=== PATIENT | female | born 1955 | race Caucasian/White ===

== ENCOUNTER 2016-05-28 01:02 | Inpatient (IN) | payer OTHER ==
[2016-05-28] VITALS (12 sets, daily range): BP systolic 105–121; BP diastolic 59–70; PULSE 88–97; RESP 16–18; TEMP 96.3–98.8; O2SAT 91–100
[~2016-05-28] VITALS: Ht 165.1 cm; Wt 82.3 kg
[2016-05-28] MEDS ORDERED: BUTA1CAP PO (01:19)
[2016-05-28] MEDS ORDERED: DEPA250T2 PO (01:19)
[2016-05-28] MEDS ORDERED: SYNT88TA PO (01:19)
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
[2016-05-28] MEDS ORDERED: HYDROmorphone HCL PF 1 MG/ML VIAL IV PUSH ONE (02:30)
[2016-05-28] MEDS ORDERED: ONDANSETRON HCL 4 MG/2 ML VIAL IV PUSH ONE (02:30)
[2016-05-28] MEDS ORDERED: ONDANSETRON HCL 4 MG/2 ML VIAL IV PRN (02:30)
[2016-05-28] MEDS: SODIUM CHLORIDE 0.9% FLUSH 5 ML FLUSH IVF SCH ×2 (02:37→20:29)
[2016-05-28] MEDS: ACETAMINOPHEN 325 MG TAB PO PRN ×2 (05:11→11:32)
[2016-05-28] MEDS: HYDROmorphone HCL PF 1 MG/ML VIAL IV PUSH PRN ×5 (05:12→21:46)
[2016-05-28] MEDS ORDERED: SODIUM CHLOR 0.9% 1000 ML INJ 1,000 ML IV SCH (06:52)
[2016-05-28] MEDS ORDERED: DIVALPROEX SODIUM DELAYED RELEASE 250 MG TAB PO SCH ×2 (07:00→09:00)
[2016-05-28] MEDS ORDERED: ENALAPRILAT 1.25 MG/ML VIAL IV PRN (07:00)
[2016-05-28] MEDS ORDERED: SODIUM CHLORIDE 0.9% FLUSH 5 ML FLUSH IVF PRN (07:00)
[2016-05-28] MEDS: DOCUSATE SODIUM 100 MG CAP PO SCH ×2 (08:24→20:27)
[2016-05-28] MEDS: LEVOTHYROXINE SODIUM 88 MCG TAB PO SCH (08:24)
[2016-05-28] MEDS: FAMOTIDINE 20 MG TAB PO SCH ×2 (08:25→20:27)
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
[2016-05-28] MEDS ORDERED: FLUoxetine HCL 20 MG CAP PO ONE (10:45)
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
[2016-05-28] MEDS: CARISOPRODOL 350 MG TAB PO SCH ×2 (14:23→21:46)
[2016-05-28] MEDS: ENOXAPARIN SODIUM 40 MG/0.4 ML SYRINGE SQ SCH (14:23)
[2016-05-28] MEDS: oxyCODONE/ACETAMINOPHEN 5 MG/325 MG TAB PO PRN ×2 (16:22→20:28)
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
[2016-05-28 17:21] LABS: AUTOMATED NEUTROPHIL # 4.8 TH/MM3 (1.8-7.7); BASOPHIL % 0.3 % (0.0-2.0); EOSINOPHIL # 0.7 TH/MM3 (0-0.4); EOSINOPHIL % 9.7 % (0.0-4.0); HEMATOCRIT 32.5 % (35.0-46.0); HEMO FLAGS DIFF FINAL; LYMPH % 12.2 % (9.0-44.0); LYMPHOCYTE # 0.9 TH/MM3 (1.0-4.8); MEAN CELL VOLUME 83.6 FL (80.0-100.0); MEAN CORPUSCULAR HEMOGLOBIN 28.1 PG (27.0-34.0); MEAN CORPUSCULAR HGB CONC 33.6 % (32.0-36.0); MONO % 10.2 % (0.0-8.0); NEUT % 67.6 % (16.0-70.0); PLATELET COUNT 163 TH/MM3 (150-450); RED BLOOD COUNT 3.89 MIL/MM3 (4.00-5.30); RED CELL DISTRIBUTION WIDTH 13.9 % (11.6-17.2)
[2016-05-28 17:47] LABS: BICARBONATE 33.3 MEQ/L (21.0-32.0); POTASSIUM 3.5 MEQ/L (3.5-5.1)
--- NOTE | 2016-05-28 17:49 | PD.ORT.PN ---
Subjective Subjective Remarks L2 Fracture Right distal clavicle fracture Bilateral ankle/foot injuries Objective Vitals Vital Signs Date Time Temp Pulse Resp B/P Pulse Ox O2 Delivery O2 Flow Rate FiO2 05/28/16 16:16 96 Nasal Cannula 2.00 05/28/16 16:00 97.8 95 18 115/63 98 05/28/16 12:00 97.5 89 18 109/65 91 05/28/16 08:00 97.1 88 18 112/66 91 05/28/16 07:54 94 Nasal Cannula 2.00 05/28/16 07:48 Nasal Cannula 2.00 05/28/16 05:10 96.3 91 16 121/67 99 05/28/16 04:46 91 18 105/59 96 05/28/16 03:50 92 18 110/64 100 Nasal Cannula 2 05/28/16 03:05 94 Nasal Cannula 2.00 05/28/16 02:38 92 16 119/62 93 Nasal Cannula 2 05/28/16 01:06 98.1 97 18 119/63 I/O 05/27/16 05/27/16 05/27/16 05/28/16 05/28/16 05/28/16 07:00 15:00 23:00 07:00 15:00 23:00 Intake Total 360 ml 1340 ml Output Total 850 ml 400 ml Balance -490 ml 940 ml Intake Oral 360 ml 1340 ml Output Urine Total 850 ml 400 ml # Bowel Movements 0 0 Result Diagram: 05/28/16 1646 Imaging Last 24 hours Impressions Lumbar Spine MRI 05/28/16 0000 Signed Impressions: Service Date/Time: Saturday, May 28, 2016 13:03 - CONCLUSION: 1. Acute L2 compression fracture with moderate wedging and bone marrow edema, mild perivertebral edema. No associated canal or foraminal narrowing. 2. Degenerative disc disease. Gume Walters MD Cervical Spine MRI 05/28/16 0000 Signed Impressions: Service Date/Time: Saturday, May 28, 2016 13:03 - CONCLUSION: There is motion artifact which does somewhat limit the study however it is otherwise unremarkable examination. Gume Walters MD Ankle MRI 05/28/16 0000 Signed Impressions: Service Date/Time: Saturday, May 28, 2016 13:37 - CONCLUSION: 1. Nondisplaced fractures of the talus, calcaneus and cuboid as above. Also apparent fractures proximally of the second through fifth metatarsals, what can be seen appears nondisplaced but not fully evaluated on this ankle MRI. 2. Acute rupture of the ATF. 3. Longitudinal splitting of peroneus brevis, presumably nonacute. Girish Mir MD Objective Remarks Full consult dictated Assessment & Plan Problem List: (1) Fracture of lumbar spine without spinal cord lesion (2) Fracture of left clavicle (3) Fracture of left talus (4) Right calcaneal fracture Assessment and Plan Discussed with patient before MRIs were completed Recommend Neurosurgery consult for significant deformity associated with L2 compression fracture with retropulsion Discussed with Dr. Barnes regarding multiple feet fractures Conservative care for distal clavicle fracture Wilmer Abraham MD May 28, 2016 17:49
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
[2016-05-28] MEDS: AMITRIPTYLINE HCL 50 MG TAB PO SCH (20:27)
[2016-05-28] MEDS: DIVALPROEX SODIUM DELAYED RELEASE 250 MG TAB PO SCH (20:28)
[2016-05-28] MEDS ORDERED: KETOROLAC TROMETHAMINE 60 MG/2 ML (IM) VIAL IM SCH (21:00)
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
[2016-05-29] VITALS (9 sets, daily range): BP systolic 116–159; BP diastolic 67–92; PULSE 82–91; RESP 16–18; TEMP 95.9–99.6; O2SAT 92–99
[2016-05-29] MEDS: HYDROmorphone HCL PF 1 MG/ML VIAL IV PUSH PRN ×4 (01:58→13:28)
[2016-05-29] MEDS: CARISOPRODOL 350 MG TAB PO SCH ×3 (06:07→21:20)
[2016-05-29] MEDS ORDERED: oxyCODONE/ACETAMINOPHEN 10 MG/325 MG TAB PO PRN (07:00)
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
[2016-05-29] MEDS: oxyCODONE/ACETAMINOPHEN 10 MG/325 MG TAB PO PRN ×2 (07:26→10:36)
[2016-05-29] MEDS: SODIUM CHLORIDE 0.9% FLUSH 5 ML FLUSH IVF SCH (07:57)
[2016-05-29] MEDS: LEVOTHYROXINE SODIUM 88 MCG TAB PO SCH (07:57)
[2016-05-29] MEDS: DOCUSATE SODIUM 100 MG CAP PO SCH ×2 (07:57→21:19)
[2016-05-29] MEDS: FAMOTIDINE 20 MG TAB PO SCH ×2 (07:57→21:20)
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
[2016-05-29] MEDS: SODIUM CHLORIDE 0.9% FLUSH 5 ML FLUSH IVF PRN ×2 (09:31→13:28)
[2016-05-29] MEDS ORDERED: SIMETHICONE 125 MG CHEWABLE TAB PO PRN (11:30)
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
[2016-05-29] MEDS: POLYETHYLENE GLYCOL 17 GM PKG PO SCH (12:37)
--- NOTE | 2016-05-29 12:39 | HHI.NSPN ---
History Chief Complaint: none Interval History She is not yet OOB pending orthopedic assessment of ankle fractures. The TLSO is at the bedside. Review of Systems General: Negative for: fever, chills, insomnia Cardiovascular: Negative for: chest pain, palpitations, orthopnea Gastrointestinal: Negative for: nausea, vomitting, diarrhea, constipation Exam Results Vital Signs Date Time Temp Pulse Resp B/P Pulse Ox O2 Delivery O2 Flow Rate FiO2 05/29/16 09:54 99 21 05/29/16 09:35 Nasal Cannula 2.00 05/29/16 07:27 95.9 85 16 136/67 Intake and Output 05/28/16 05/28/16 05/29/16 08:00 16:00 00:00 Intake Total 360 ml 1340 ml 720 ml Output Total 850 ml 400 ml 750 ml Balance -490 ml 940 ml -30 ml Physical Examination Alert and oriented x 3, speech fluent Moves caden hip flexors, quads, hams ant tib and gastroc with excellent strength. Bruising and edema in both feet Patella reflexes are intact bilaterally Lab, Micro, Other Results Last Impressions Foot X-Ray 05/29/16 0000 Signed Impressions: Service Date/Time: Sunday, May 29, 2016 08:15 - CONCLUSION: Fractures are noted as above. Gume Walters MD Clavicle X-Ray 05/29/16 0000 Signed Impressions: Service Date/Time: Sunday, May 29, 2016 08:19 - CONCLUSION: No acute disease. Gume Walters MD Lumbar Spine MRI 05/28/16 0000 Signed Impressions: Service Date/Time: Saturday, May 28, 2016 13:03 - CONCLUSION: 1. Acute L2 compression fracture with moderate wedging and bone marrow edema, mild perivertebral edema. No associated canal or foraminal narrowing. 2. Degenerative disc disease. Gume Walters MD Cervical Spine MRI 05/28/16 0000 Signed Impressions: Service Date/Time: Saturday, May 28, 2016 13:03 - CONCLUSION: There is motion artifact which does somewhat limit the study however it is otherwise unremarkable examination. Gume Walters MD Ankle MRI 05/28/16 0000 Signed Impressions: Service Date/Time: Saturday, May 28, 2016 13:54 - CONCLUSION: Comminuted , minimally to mildly displaced intra-articular fracture of the calcaneus as above. Girish Mir MD Laboratory Tests Test 05/28/16 16:46 White Blood Count 7.0 TH/MM3 Red Blood Count 3.89 MIL/MM3 Hemoglobin 10.9 GM/DL Hematocrit 32.5 % Mean Corpuscular Volume 83.6 FL Mean Corpuscular Hemoglobin 28.1 PG Mean Corpuscular Hemoglobin 33.6 % Concent Red Cell Distribution Width 13.9 % Platelet Count 163 TH/MM3 Mean Platelet Volume 9.1 FL Neutrophils (%) (Auto) 67.6 % Lymphocytes (%) (Auto) 12.2 % Monocytes (%) (Auto) 10.2 % Eosinophils (%) (Auto) 9.7 % Basophils (%) (Auto) 0.3 % Neutrophils # (Auto) 4.8 TH/MM3 Lymphocytes # (Auto) 0.9 TH/MM3 Monocytes # (Auto) 0.7 TH/MM3 Eosinophils # (Auto) 0.7 TH/MM3 Basophils # (Auto) 0.0 TH/MM3 CBC Comment DIFF FINAL Differential Comment Sodium Level 137 MEQ/L Potassium Level 3.5 MEQ/L Chloride Level 98 MEQ/L Carbon Dioxide Level 33.3 MEQ/L Anion Gap 6 MEQ/L Blood Urea Nitrogen 11 MG/DL Creatinine 0.54 MG/DL Estimat Glomerular Filtration 116 ML/MIN Rate Random Glucose 90 MG/DL Calcium Level 8.0 MG/DL Medical Decision Making Impression and Plan L2 stable compression fracture, stable neurologically as well. Plan rehab, OOB with TLSO when able from co -morbidities. DVT/PUD prophylaxis, Vitamin D level, rehab consults Total Minutes: 10 Kamar Her May 29, 2016 12:39
[2016-05-29] MEDS: ENOXAPARIN SODIUM 40 MG/0.4 ML SYRINGE SQ SCH (13:28)
[2016-05-29] MEDS ORDERED: HYDROmorphone HCL 2 MG TAB PO PRN (14:00)
[2016-05-29] MEDS: HYDROmorphone HCL 4 MG TAB PO PRN ×3 (15:41→21:23)
[2016-05-29] MEDS: BACITRACIN TOP OINT 15 GM TUBE TOP SCH ×2 (15:41→21:21)
[2016-05-29] MEDS ORDERED: ENOXAPARIN SODIUM 30 MG/0.3 ML SYRINGE SQ SCH (16:00)
[2016-05-29] MEDS: DIVALPROEX SODIUM DELAYED RELEASE 250 MG TAB PO SCH (21:19)
[2016-05-29] MEDS: AMITRIPTYLINE HCL 50 MG TAB PO SCH (21:20)
[2016-05-29] MEDS: ALPRAZolam 0.5 MG TAB PO PRN (21:23)
[2016-05-29] MEDS: ENOXAPARIN SODIUM 30 MG/0.3 ML SYRINGE SQ SCH (23:05)
[2016-05-30] VITALS: BP 150/87; PULSE 92; RESP 18; TEMP 98.7; O2SAT 93
[2016-05-30] MEDS: HYDROmorphone HCL 4 MG TAB PO PRN ×8 (00:42→21:23)
[2016-05-30 04:00] VITALS: BP 153/87; PULSE 92; RESP 18; TEMP 99.2; O2SAT 94
[2016-05-30] MEDS: MAGNESIUM HYDROXIDE SUSP 30 ML CUP PO PRN ×2 (05:38→14:39)
[2016-05-30] MEDS: CARISOPRODOL 350 MG TAB PO SCH ×3 (05:38→21:17)
--- NOTE | 2016-05-30 07:26 | PD.ORT.PN ---
Subjective Subjective Remarks Kristen is awake and alert. Pain is improving. She still complains of left foot pain, mild right foot pain, mild left shoulder pain Objective Vitals Vital Signs Date Time Temp Pulse Resp B/P Pulse Ox O2 Delivery O2 Flow Rate FiO2 05/30/16 04:00 99.2 92 18 153/87 94 05/30/16 00:00 98.7 92 18 150/87 93 05/29/16 20:26 87 05/29/16 20:00 99.0 82 18 143/86 92 05/29/16 17:25 99.6 90 18 155/92 94 05/29/16 12:00 95.9 89 18 159/76 95 05/29/16 09:54 99 21 05/29/16 09:35 Nasal Cannula 2.00 05/29/16 07:27 95.9 85 16 136/67 93 I/O 05/29/16 05/29/16 05/29/16 05/30/16 05/30/16 05/30/16 07:00 15:00 23:00 07:00 15:00 23:00 Intake Total 480 ml 1216 ml 360 ml 360 ml Output Total 400 ml 1300 ml 500 ml 525 ml Balance 80 ml -84 ml -140 ml -165 ml Intake Oral 480 ml 720 ml 360 ml 360 ml IV Total 496 ml Output Urine Total 400 ml 1300 ml 500 ml 525 ml # Bowel Movements 0 0 0 Result Diagram: 05/28/16 1646 05/28/16 1646 Imaging Last 24 hours Impressions Lumbar Spine MRI 05/28/16 0000 Signed Impressions: Service Date/Time: Saturday, May 28, 2016 13:03 - CONCLUSION: 1. Acute L2 compression fracture with moderate wedging and bone marrow edema, mild perivertebral edema. No associated canal or foraminal narrowing. 2. Degenerative disc disease. Gume Walters MD Cervical Spine MRI 05/28/16 0000 Signed Impressions: Service Date/Time: Saturday, May 28, 2016 13:03 - CONCLUSION: There is motion artifact which does somewhat limit the study however it is otherwise unremarkable examination. Gume Walters MD Ankle MRI 05/28/16 0000 Signed Impressions: Service Date/Time: Saturday, May 28, 2016 13:37 - CONCLUSION: 1. Nondisplaced fractures of the talus, calcaneus and cuboid as above. Also apparent fractures proximally of the second through fifth metatarsals, what can be seen appears nondisplaced but not fully evaluated on this ankle MRI. 2. Acute rupture of the ATF. 3. Longitudinal splitting of peroneus brevis, presumably nonacute. Girish Mir MD Objective Remarks Right upper extremity: Full range of motion neurovascularly intact Left upper extremity: Pain to palpation over clavicle. Minimal pain to palpation of her proximal humerus elbow wrist and fingers. Mild pain with shoulder motion. Distally neurovascularly intact Bilateral lower extremities no pain with hip or knee range of motion. Right linter tender to palpation over calcaneus. Left foot pain over calcaneus and distal metatarsals. Intact sensation bilateral lower extremities. Intact distal pulses bilaterally. Assessment & Plan Problem List: (1) Fracture of lumbar spine without spinal cord lesion (2) Fracture of left clavicle (3) Fracture of left talus (4) Right calcaneal fracture Assessment and Plan Left shoulder AC sprain-- nonoperative treatment Weight-bear as tolerated left upper extremity Right minimally displaced calcaneus fracture Fracture boot and partial weightbearing for transfers only Left calcaneus, talus, cuboid and fractures from 2 through 5 metatarsals Fracture boot and partial weightbearing for transfers only Discharge planning, SNF versus rehab Gus Barnes MD May 30, 2016 07:26
[2016-05-30 07:36] LABS: HEMATOCRIT 35.3 % (35.0-46.0); MEAN CELL VOLUME 82.4 FL (80.0-100.0); MEAN CORPUSCULAR HEMOGLOBIN 28.8 PG (27.0-34.0); PLATELET COUNT 199 TH/MM3 (150-450); RED BLOOD COUNT 4.28 MIL/MM3 (4.00-5.30); REVIEW FLAG FINAL; WHITE BLOOD COUNT 8.8 TH/MM3 (4.0-11.0)
[2016-05-30] MEDS ORDERED: WALKER WHEELS/F1 MIS (07:53)
[2016-05-30] MEDS ORDERED: MISC-163 (07:53)
[2016-05-30] MEDS ORDERED: WHEEMIS3 (07:53)
[2016-05-30 08:00] VITALS: BP 138/83; PULSE 103; RESP 20; TEMP 95.9; O2SAT 92
[2016-05-30 08:07] LABS: MAGNESIUM 1.8 MG/DL (1.5-2.5); POTASSIUM 3.7 MEQ/L (3.5-5.1)
[2016-05-30] MEDS: POLYETHYLENE GLYCOL 17 GM PKG PO SCH (08:58)
[2016-05-30] MEDS: FAMOTIDINE 20 MG TAB PO SCH ×2 (08:58→21:17)
[2016-05-30] MEDS: DOCUSATE SODIUM 100 MG CAP PO SCH ×2 (08:58→21:18)
[2016-05-30] MEDS: LEVOTHYROXINE SODIUM 88 MCG TAB PO SCH (08:58)
[2016-05-30] MEDS: BACITRACIN TOP OINT 15 GM TUBE TOP SCH ×2 (08:59→21:18)
[2016-05-30] MEDS: SODIUM CHLORIDE 0.9% FLUSH 5 ML FLUSH IVF SCH ×2 (08:59→21:17)
[2016-05-30] MEDS: ENOXAPARIN SODIUM 30 MG/0.3 ML SYRINGE SQ SCH ×2 (11:44→21:20)
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
[2016-05-30 12:00] VITALS: BP 114/72; PULSE 117; RESP 18; TEMP 98.2; O2SAT 92
[2016-05-30 16:00] VITALS: BP 126/82; PULSE 103; RESP 20; TEMP 100.2; O2SAT 93
[2016-05-30 20:00] VITALS: BP 116/72; PULSE 98; RESP 18; TEMP 98.8; O2SAT 92
[2016-05-30] MEDS: AMITRIPTYLINE HCL 50 MG TAB PO SCH (21:17)
[2016-05-30] MEDS: DIVALPROEX SODIUM DELAYED RELEASE 250 MG TAB PO SCH (21:18)
[2016-05-31 00:34] VITALS: BP 136/75; PULSE 102; RESP 18; TEMP 98.7; O2SAT 90
[2016-05-31] MEDS: HYDROmorphone HCL 4 MG TAB PO PRN ×7 (00:44→22:36)
[2016-05-31] MEDS ORDERED: BISACODYL 10 MG SUPP RECTAL PRN (03:15)
[2016-05-31] MEDS: CARISOPRODOL 350 MG TAB PO SCH ×3 (06:40→22:36)
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
[2016-05-31 08:00] VITALS: BP 130/72; PULSE 109; RESP 16; TEMP 99; O2SAT 92
[2016-05-31] MEDS: POLYETHYLENE GLYCOL 17 GM PKG PO SCH (09:00)
[2016-05-31] MEDS: FAMOTIDINE 20 MG TAB PO SCH ×2 (09:07→21:12)
[2016-05-31] MEDS: BACITRACIN TOP OINT 15 GM TUBE TOP SCH ×2 (09:07→21:11)
[2016-05-31] MEDS: BISACODYL EC 5 MG TABEC PO SCH ×2 (09:07→21:12)
[2016-05-31] MEDS: DOCUSATE SODIUM 100 MG CAP PO SCH ×2 (09:07→21:12)
[2016-05-31] MEDS: LEVOTHYROXINE SODIUM 88 MCG TAB PO SCH (09:07)
[2016-05-31] MEDS: SODIUM CHLORIDE 0.9% FLUSH 5 ML FLUSH IVF SCH ×2 (09:13→21:12)
[2016-05-31] MEDS: ALPRAZolam 0.5 MG TAB PO PRN ×2 (09:41→22:36)
[2016-05-31] MEDS ORDERED: MAGNESIUM CITRATE SOLN 300 ML BTL PO ONE (11:30)
[2016-05-31 12:00] VITALS: BP 109/66; PULSE 118; RESP 16; TEMP 97.5; O2SAT 96
[2016-05-31] MEDS: ENOXAPARIN SODIUM 30 MG/0.3 ML SYRINGE SQ SCH ×2 (12:38→22:36)
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
[2016-05-31 16:00] VITALS: BP 125/78; PULSE 115; RESP 17; TEMP 96.9; O2SAT 94
[2016-05-31] MEDS: SODIUM CHLORIDE 0.9% FLUSH 5 ML FLUSH IVF PRN (16:04)
--- NOTE | 2016-05-31 16:21 | RADRPT ---
EXAM DATE/TIME: 05/31/2016 14:47 [place] COMPARISON: No previous studies available for comparison. INDICATIONS : Evaluate for Ileus, constipation and nausea. MEDICAL HISTORY : A-fib. SURGICAL HISTORY : Hysterectomy. ENCOUNTER: Initial ACUITY: 1 week PAIN SCORE: 6/10 LOCATION: Bilateral lower quadrant FINDINGS: There is gaseous distention of bowel, especially large bowel diffusely. Moderate constipation noted i n the rectosigmoid. No free air. No acute bony abnormalities. CONCLUSION: 1. Moderate to severe rectosigmoid constipation with diffuse gaseous distention of large bowel. No fr ee air. Basilar air space disease in the lungs. Cristobal Nath MD on May 31, 2016 at 16:16 Board Certified Radiologist. This report was verified electronically.
[2016-05-31] MEDS ORDERED: ENOX30P SQ (17:12)
[2016-05-31] MEDS ORDERED: Amitriptyline PO (17:12)
[2016-05-31] MEDS ORDERED: DIVA250T PO (17:12)
[2016-05-31] MEDS ORDERED: BISA10R RECTAL (17:12)
[2016-05-31] MEDS ORDERED: FLEE5TAB PO (17:12)
[2016-05-31] MEDS ORDERED: ACET325T PO (17:12)
[2016-05-31] MEDS ORDERED: DILA4TAB2 PO (17:12)
[2016-05-31] MEDS ORDERED: SIME1CHW11 PO (17:12)
[2016-05-31] MEDS ORDERED: ALPR.5 PO (17:12)
[2016-05-31] MEDS ORDERED: POLY17S PO (17:12)
[2016-05-31] MEDS ORDERED: SYNT88TA PO (17:12)
[2016-05-31] MEDS ORDERED: FAMO20TA2 PO (17:12)
[2016-05-31] MEDS ORDERED: MILKSUS PO (17:12)
[2016-05-31] MEDS ORDERED: DILA2TAB2 PO (17:12)
[2016-05-31] MEDS ORDERED: DOCU1CAP39 PO (17:12)
[2016-05-31 20:10] VITALS: BP 127/74; PULSE 121; RESP 16; TEMP 99.3; O2SAT 92
[2016-05-31] MEDS: AMITRIPTYLINE HCL 50 MG TAB PO SCH (21:12)
[2016-05-31] MEDS: DIVALPROEX SODIUM DELAYED RELEASE 250 MG TAB PO SCH (21:12)
[2016-05-31 21:30] VITALS: PULSE 121
[2016-06-01 00:17] VITALS: BP 115/73; PULSE 109; RESP 15; TEMP 98.2; O2SAT 94
[2016-06-01] MEDS: HYDROmorphone HCL 4 MG TAB PO PRN ×3 (02:18→09:52)
[2016-06-01] MEDS: MAGNESIUM HYDROXIDE SUSP 30 ML CUP PO PRN (04:00)
[2016-06-01 04:05] VITALS: BP 127/83; PULSE 111; RESP 16; TEMP 98.8; O2SAT 93
[2016-06-01] MEDS: CARISOPRODOL 350 MG TAB PO SCH (05:34)
--- NOTE | 2016-06-01 06:54 | PD.ORT.PN ---
Subjective Subjective Remarks s/p left foot fractures s/p right calc fx doing well. out of bed and in chair. resting comfortably Objective Vitals Vital Signs Date Time Temp Pulse Resp B/P Pulse Ox O2 Delivery O2 Flow Rate FiO2 06/01/16 04:05 98.8 111 16 127/83 93 06/01/16 00:17 98.2 109 15 115/73 94 05/31/16 21:30 121 05/31/16 20:10 99.3 121 16 127/74 92 05/31/16 19:34 96 Room Air 05/31/16 16:00 96.9 115 17 125/78 94 05/31/16 14:50 16 05/31/16 12:00 97.5 118 16 109/66 96 05/31/16 08:00 Room Air 05/31/16 08:00 99.0 109 16 130/72 92 05/31/16 07:40 18 I/O 05/31/16 05/31/16 05/31/16 06/01/16 06/01/16 06/01/16 06:59 14:59 22:59 06:59 14:59 22:59 Intake Total 240 ml 680 ml 180 ml Output Total 450 ml 400 ml 650 ml Balance -210 ml 280 ml -470 ml Intake Oral 240 ml 680 ml 180 ml Output Urine Total 450 ml 400 ml 650 ml # Bowel Movements 0 0 0 Result Diagram: 05/30/16 0651 05/30/16 0651 Imaging Last 24 hours Impressions Lumbar Spine MRI 05/28/16 0000 Signed Impressions: Service Date/Time: Saturday, May 28, 2016 13:03 - CONCLUSION: 1. Acute L2 compression fracture with moderate wedging and bone marrow edema, mild perivertebral edema. No associated canal or foraminal narrowing. 2. Degenerative disc disease. Gume Walters MD Cervical Spine MRI 05/28/16 0000 Signed Impressions: Service Date/Time: Saturday, May 28, 2016 13:03 - CONCLUSION: There is motion artifact which does somewhat limit the study however it is otherwise unremarkable examination. Gume Walters MD Ankle MRI 05/28/16 0000 Signed Impressions: Service Date/Time: Saturday, May 28, 2016 13:37 - CONCLUSION: 1. Nondisplaced fractures of the talus, calcaneus and cuboid as above. Also apparent fractures proximally of the second through fifth metatarsals, what can be seen appears nondisplaced but not fully evaluated on this ankle MRI. 2. Acute rupture of the ATF. 3. Longitudinal splitting of peroneus brevis, presumably nonacute. Girish Mir MD Objective Remarks RLE: +fracture boot LLE: +short leg splint Assessment & Plan Problem List: (1) Fracture of lumbar spine without spinal cord lesion (2) Fracture of left clavicle (3) Fracture of left talus (4) Right calcaneal fracture Assessment and Plan 1) Left shoulder AC sprain-- nonoperative treatment Weight-bear as tolerated left upper extremity 2) Right minimally displaced calcaneus fracture Fracture boot and partial weightbearing for transfers only 3) Left calcaneus, talus, cuboid and fractures from 2 through 5 metatarsals Renetta splint and partial weightbearing for transfers only Discharge planning, SNF versus rehab Follow-up with Dr. Jackson or [place] in 2 weeks Juan Freeman Jun 01, 2016 06:53
[2016-06-01] MEDS: LEVOTHYROXINE SODIUM 88 MCG TAB PO SCH (07:44)
[2016-06-01] MEDS: FAMOTIDINE 20 MG TAB PO SCH (07:44)
[2016-06-01] MEDS: BISACODYL EC 5 MG TABEC PO SCH (07:45)
[2016-06-01] MEDS: DOCUSATE SODIUM 100 MG CAP PO SCH (07:45)
[2016-06-01] MEDS: POLYETHYLENE GLYCOL 17 GM PKG PO SCH (07:45)
[2016-06-01 08:00] VITALS: BP 112/82; PULSE 114; RESP 18; TEMP 97.2; O2SAT 92
[2016-06-01] MEDS: ALPRAZolam 0.5 MG TAB PO PRN (09:52)
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
[2016-06-07] MEDS ORDERED: WHEEMIS3 (14:38)
[2016-06-07] MEDS ORDERED: COMMODE 3-IN-11 MIS (14:38)
[2016-06-11] MEDS ORDERED: CYCL1TAB29 PO (08:16)
[2016-06-11] MEDS ORDERED: SYNT88TA PO (08:16)
[2016-06-11] MEDS ORDERED: DIVA250T PO (08:16)
[2016-06-11] MEDS ORDERED: FAMO20TA2 PO (08:16)
[2016-06-11] MEDS ORDERED: AMBI5TAB PO (08:16)
[2016-06-11] MEDS ORDERED: ENOX40P SQ (08:16)
[2016-06-11] MEDS ORDERED: FLUO20CA4 PO (08:16)
[2016-06-11] MEDS ORDERED: DOCU1CAP39 PO (08:16)
[2016-06-11] MEDS ORDERED: FENT25T TD (08:16)
[2016-06-11] MEDS ORDERED: Amitriptyline PO (08:16)
[2016-06-11] MEDS ORDERED: SIME1CHW11 PO (08:16)
[2016-06-11] MEDS ORDERED: ALPR.5 PO (08:16)
[2016-06-11] MEDS ORDERED: POLY17S PO (08:16)
[2016-06-11] MEDS ORDERED: OXYC-396 PO (08:16)
[2016-06-23] MEDS ORDERED: MILKSUS PO (11:30)
[2016-06-23] MEDS ORDERED: FENT12DI T-DERMAL (11:57)
[2016-07-29] MEDS ORDERED: OXYC-396 PO (11:52)
== END 2016-06-01 10:40 | DRG 552 ==
LOC: NEPC 01:02 → NEDA 02:22 → N06B 04:57
PROVIDERS: ADMIT Surgery; ATTEND Surgery
DX: S32.029A Unspecified fracture of second lumbar vertebra, initial encounter for closed fracture (principal); E03.9 Hypothyroidism, unspecified; S42.022A Displaced fracture of shaft of left clavicle, initial encounter for closed fracture; S92.102A Unspecified fracture of left talus, initial encounter for closed fracture; S92.001A Unspecified fracture of right calcaneus, initial encounter for closed fracture; S92.002A Unspecified fracture of left calcaneus, initial encounter for closed fracture; S13.4XXA Sprain of ligaments of cervical spine, initial encounter; S92.214A Nondisplaced fracture of cuboid bone of right foot, initial encounter for closed fracture; S92.324A Nondisplaced fracture of second metatarsal bone, right foot, initial encounter for closed fracture; S92.334A Nondisplaced fracture of third metatarsal bone, right foot, initial encounter for closed fracture; S92.344A Nondisplaced fracture of fourth metatarsal bone, right foot, initial encounter for closed fracture; S92.354A Nondisplaced fracture of fifth metatarsal bone, right foot, initial encounter for closed fracture; M47.812 Spondylosis without myelopathy or radiculopathy, cervical region; F41.9 Anxiety disorder, unspecified; K59.00 Constipation, unspecified; G89.29 Other chronic pain; V47.5XXA Car driver injured in collision with fixed or stationary object in traffic accident, initial encounter; Y92.410 Unspecified street and highway as the place of occurrence of the external cause; Z88.5 Allergy status to narcotic agent; Z98.82 Breast implant status
CPT/HCPCS: 72141; 72148; 73000; 73630; 73721; 74000; 80048; 82652; 83735; 85025; 85027; 94150; 99285; J1170; J1650; J2405; L0200; L0484; L2114